=== PATIENT | male | born 1985 | race Caucasian/White ===

== ENCOUNTER 2020-02-24 21:22 | Inpatient (IN) | payer BC, OTHER ==
[~2020-02-24] VITALS: Ht 175.3 cm; Wt 101.9 kg
[2020-02-24 22:26] LABS: Eosinophils # (auto) 0 10 ^3/uL (0-0.8); Eosinophils % (auto) 0.3 % (0.0-7.0); Hemoglobin 10.7 g/dL (13.5-17.5); Monocytes # (auto) 0.7 10 ^3/uL (0-1.3); Neutrophils # (auto) 6.9 10 ^3/uL (1.6-8.6); Platelet Count (auto) 87 10^3/uL (140-450)
[2020-02-24 22:28] LABS: Basophils # (auto) 0 10 ^3/uL (0-0.2); Basophils % (auto) 0.3 % (0.0-2.0); Hematocrit 29.6 % (41.0-53.0); Lymphocytes # (auto) 0.9 10 ^3/uL (0.4-5.4); Mean Corpuscular Hemoglobin 35.7 pg (28.0-32.0); Mean Corpuscular Hgb Conc. 36.1 g/dL (32.0-36.0); Mean Corpuscular Volume 99.1 fL (80.0-100.0); Monocytes % (auto) 8.2 % (0.0-12.0); Neutrophils % (auto) 80.2 % (37.0-80.0); Red Blood Cells 2.99 10^6/uL (4.5-5.90); White Blood Cell 8.6 10^3/uL (4.4-10.8)
[2020-02-24 22:34] LABS: Alanine Aminotransferase 45 U/L (16-61); Albumin 2.5 g/dL (3.4-5.0); Anion Gap 11 (5-15); Aspartate Aminotransferase 204 U/L (15-37); BUN/Creatinine Ratio 11.4; Blood Urea Nitrogen 10 mg/dL (7-18); Calcium 7.7 mg/dL (8.5-10.1); Carbon Dioxide 24 mmol/L (21-32); Chloride 90 mmol/L (98-107); GFR African American 126 mL/min; GFR Non-African American 104 mL/min; Glucose 135 mg/dL (74-106); Potassium 3.2 mmol/L (3.5-5.1); Sodium 125 mmol/L (136-145)
[2020-02-24 22:39] LABS: Alkaline Phosphatase 300 U/L (45-117); Bilirubin, Total 9.6 mg/dL (0.2-1.0)
[2020-02-24] MEDS ORDERED: FOLIC ACID 1 MG, MULTIPLE VITAMIN 10 ML, MAGNESIUM SULF SDV 50% 8 MEQ, THIAMINE INJ 100... INJ ONE ×5 (23:00)
[2020-02-24 23:09] LABS: Urine Amorphous Crystal FEW /hpf (None Seen); Urine Bacteria FEW /hpf (None Seen); Urine Blood Negative /uL (Negative); Urine Hyaline Cast FEW /lpf (0 - 2); Urine Specific Gravity 1.022 (1.001-1.035); Urine WBC 2 /hpf (0 - 3)
[2020-02-25] MEDS ORDERED: SODIUM CHLORIDE 0.9% 1,000 ML IV ONE (00:30)
[2020-02-25 00:43] LABS: INR 2.02 (0.9-1.15); Partial Thromboplastin Time 34.6 sec (23.64-32.05)
[2020-02-25] MEDS ORDERED: IOHEXOL 300 MG/ML 100ML BOTTLE IJ ONE (00:43)
[2020-02-25] MEDS ORDERED: LACTULOSE 20Gm/30ML SOLN PO ONE (01:30)
[2020-02-25] MEDS ORDERED: TEMAZEPAM 15 MG CAP PO PRN (02:45)
[2020-02-25] MEDS ORDERED: SODIUM CHLORIDE 0.9% 1,000 ML IV SCH (02:45)
[2020-02-25] MEDS ORDERED: MORPHINE SULF INJ 2 MG/ML SYRINGE 1ML IV PRN (03:15)
[2020-02-25] MEDS ORDERED: PROPRANOLOL HCL 20 MG TAB PO ONE (03:15)
[2020-02-25] MEDS ORDERED: NITROGLYCERIN 0.4 MG SL TAB SL PRN (03:15)
[2020-02-25 03:32] LABS: Amylase 72 U/L (25-115); Lipase 300 U/L (73-393)
[2020-02-25] MEDS: chlordiazePOXIDE HCL 25 MG CAP PO PRN ×2 (03:54→10:03)
[2020-02-25 06:00] VITALS: BP 101/60
[2020-02-25 06:11] VITALS: BP 116/72
[2020-02-25 08:38] VITALS: BP 106/65
[2020-02-25] MEDS ORDERED: FAMOTIDINE 20 MG TAB PO SCH (10:00)
[2020-02-25] MEDS ORDERED: LACTULOSE 20Gm/30ML SOLN PO SCH (10:00)
[2020-02-25] MEDS: PROPRANOLOL HCL 20 MG TAB PO SCH ×2 (10:05→23:04)
[2020-02-25] MEDS ORDERED: PHYTONADIONE(VitK) ORAL Susp 10mg/10ml(1mg/ml) PO ONE (10:45)
[2020-02-25] MEDS: rifAXIMin 550 MG TAB PO SCH ×2 (11:51→23:05)
[2020-02-25] MEDS ORDERED: FOLIC ACID 1 MG, MULTIPLE VITAMIN 10 ML, MAGNESIUM SULF SDV 50% 8 MEQ, THIAMINE INJ 100... INJ SCH ×5 (12:00)
[2020-02-25 13:26] VITALS: BP 127/69
[2020-02-25] MEDS: LACTULOSE 20Gm/30ML SOLN PO SCH ×2 (16:00→23:01)
[2020-02-25] MEDS ORDERED: THIAMINE 100mg/ml INJ (200mg/2ml VIAL) IV ONE (16:45)
[2020-02-25] MEDS ORDERED: LORazepam 2MG/ML-1ML VIAL IV PRN (16:45)
[2020-02-25] MEDS ORDERED: MULTIPLE VITAMIN TAB PO ONE (16:45)
[2020-02-25] MEDS ORDERED: FOLIC ACID 1 MG TAB PO ONE (16:45)
[2020-02-25] MEDS ORDERED: LORazepam 2MG/ML-1ML VIAL IV ONE (17:30)
[2020-02-25] MEDS: LORazepam 2MG/ML-1ML VIAL IV PRN ×2 (19:02→23:50)
[2020-02-25] MEDS: PANTOPRAZOLE 40 MG TAB PO SCH (23:04)
[2020-02-26] MEDS: LACTULOSE 20Gm/30ML SOLN PO SCH ×3 (04:12→22:29)
[2020-02-26 07:19] LABS: Basophils # (auto) 0.1 10 ^3/uL (0-0.2); Basophils % (auto) 0.9 % (0.0-2.0); Mean Corpuscular Volume 101.6 fL (80.0-100.0); Neutrophils # (auto) 5.8 10 ^3/uL (1.6-8.6); Nucleated Red Blood Cells % 0.2 %
[2020-02-26 07:21] LABS: Eosinophils # (auto) 0.2 10 ^3/uL (0-0.8); Eosinophils % (auto) 1.8 % (0.0-7.0); Hematocrit 22.6 % (41.0-53.0); Lymphocytes # (auto) 1.9 10 ^3/uL (0.4-5.4); Lymphocytes % (auto) 22.7 % (10.0-50.0); Mean Corpuscular Hemoglobin 36.1 pg (28.0-32.0); Mean Corpuscular Hgb Conc. 35.5 g/dL (32.0-36.0); Monocytes # (auto) 0.7 10 ^3/uL (0-1.3); Monocytes % (auto) 7.6 % (0.0-12.0); Platelet Count (auto) 106 10^3/uL (140-450); Red Blood Cells 2.23 10^6/uL (4.5-5.90); Red Cell Distribution Width 17.1 % (11.8-14.3); White Blood Cell 8.6 10^3/uL (4.4-10.8)
[2020-02-26 07:42] LABS: Albumin 2.1 g/dL (3.4-5.0); Calcium 7.4 mg/dL (8.5-10.1)
[2020-02-26 07:45] LABS: BUN/Creatinine Ratio 25.3; Bilirubin, Total 9.9 mg/dL (0.2-1.0); Total Protein 4.9 g/dL (6.4-8.2)
[2020-02-26 07:48] LABS: Potassium 2.9 mmol/L (3.5-5.1)
[2020-02-26] MEDS ORDERED: POTASSIUM CHL 20 Meq TABLET PO ONE (08:15)
[2020-02-26 08:21] LABS: INR 1.88 (0.9-1.15)
[2020-02-26 10:18] VITALS: BP 115/62
[2020-02-26] MEDS: MULTIPLE VITAMIN TAB PO SCH (10:49)
[2020-02-26] MEDS: THIAMINE 100mg/ml INJ (200mg/2ml VIAL) IV SCH (10:49)
[2020-02-26] MEDS: rifAXIMin 550 MG TAB PO SCH ×2 (10:50→22:25)
[2020-02-26] MEDS: FOLIC ACID 1 MG TAB PO SCH (10:50)
[2020-02-26] MEDS: PANTOPRAZOLE 40 MG TAB PO SCH ×2 (10:51→22:24)
[2020-02-26] MEDS: PROPRANOLOL HCL 20 MG TAB PO SCH ×2 (10:51→22:00)
[2020-02-26 17:00] VITALS: BP 101/53
[2020-02-26 22:00] VITALS: BP 96/63
[2020-02-27] MEDS: LACTULOSE 20Gm/30ML SOLN PO SCH ×4 (03:54→22:39)
[2020-02-27 05:00] VITALS: BP 104/59
[2020-02-27 06:36] LABS: Eosinophils # (auto) 0.1 10 ^3/uL (0-0.8); Hemoglobin 8.5 g/dL (13.5-17.5); Monocytes # (auto) 0.6 10 ^3/uL (0-1.3); Neutrophils # (auto) 4.4 10 ^3/uL (1.6-8.6); Red Blood Cells 2.33 10^6/uL (4.5-5.90)
[2020-02-27 06:39] LABS: Basophils # (auto) 0.1 10 ^3/uL (0-0.2); Basophils % (auto) 0.8 % (0.0-2.0); Hematocrit 24.1 % (41.0-53.0); Lymphocytes # (auto) 1.4 10 ^3/uL (0.4-5.4); Lymphocytes % (auto) 21.5 % (10.0-50.0); Mean Corpuscular Hemoglobin 36.6 pg (28.0-32.0); Mean Corpuscular Hgb Conc. 35.4 g/dL (32.0-36.0); Mean Corpuscular Volume 103.5 fL (80.0-100.0); Monocytes % (auto) 9.3 % (0.0-12.0); Neutrophils % (auto) 66.4 % (37.0-80.0); Platelet Count (auto) 108 10^3/uL (140-450); Red Cell Distribution Width 17.4 % (11.8-14.3); White Blood Cell 6.5 10^3/uL (4.4-10.8)
[2020-02-27 07:57] LABS: Albumin 2.2 g/dL (3.4-5.0); BUN/Creatinine Ratio 16.7; Calcium 7.5 mg/dL (8.5-10.1)
[2020-02-27 07:58] LABS: Bilirubin, Total 10.9 mg/dL (0.2-1.0); Total Protein 5.2 g/dL (6.4-8.2)
[2020-02-27 07:59] LABS: Potassium 2.8 mmol/L (3.5-5.1)
[2020-02-27] MEDS ORDERED: POTASSIUM CHL 20 Meq TABLET PO ONE (08:15)
[2020-02-27] MEDS: THIAMINE 100mg/ml INJ (200mg/2ml VIAL) IV SCH (08:59)
[2020-02-27] MEDS: FOLIC ACID 1 MG TAB PO SCH (08:59)
[2020-02-27] MEDS: PROPRANOLOL HCL 20 MG TAB PO SCH ×2 (08:59→22:00)
[2020-02-27] MEDS: rifAXIMin 550 MG TAB PO SCH ×2 (09:00→22:40)
[2020-02-27] MEDS: PANTOPRAZOLE 40 MG TAB PO SCH ×2 (09:00→22:39)
[2020-02-27] MEDS: MULTIPLE VITAMIN TAB PO SCH (09:00)
[2020-02-27 11:50] VITALS: BP 108/61
[2020-02-27 13:00] VITALS: BP 95/57
[2020-02-27] MEDS: POTASSIUM CHL 20 Meq TABLET PO SCH ×2 (13:38→22:39)
[2020-02-27 17:00] VITALS: BP 95/60
[2020-02-27 22:00] VITALS: BP 96/61
[2020-02-28] MEDS: LACTULOSE 20Gm/30ML SOLN PO SCH ×4 (04:00→21:25)
[2020-02-28 05:00] VITALS: BP 102/64
[2020-02-28 07:12] LABS: Basophils # (auto) 0.1 10 ^3/uL (0-0.2); Basophils % (auto) 1.2 % (0.0-2.0); Hemoglobin 8.7 g/dL (13.5-17.5); Monocytes # (auto) 0.7 10 ^3/uL (0-1.3); Neutrophils # (auto) 4.5 10 ^3/uL (1.6-8.6); Nucleated Red Blood Cells % 0.1 %; White Blood Cell 6.9 10^3/uL (4.4-10.8)
[2020-02-28 07:14] LABS: Eosinophils # (auto) 0.1 10 ^3/uL (0-0.8); Eosinophils % (auto) 2.1 % (0.0-7.0); Hematocrit 24.7 % (41.0-53.0); Lymphocytes # (auto) 1.6 10 ^3/uL (0.4-5.4); Lymphocytes % (auto) 22.6 % (10.0-50.0); Mean Corpuscular Hgb Conc. 35.2 g/dL (32.0-36.0); Mean Corpuscular Volume 105.1 fL (80.0-100.0); Monocytes % (auto) 9.7 % (0.0-12.0); Neutrophils % (auto) 64.4 % (37.0-80.0); Platelet Count (auto) 122 10^3/uL (140-450); Red Blood Cells 2.35 10^6/uL (4.5-5.90); Red Cell Distribution Width 17.9 % (11.8-14.3)
[2020-02-28 07:42] LABS: INR 1.96 (0.9-1.15); Partial Thromboplastin Time 32.5 sec (23.64-32.05)
[2020-02-28 07:46] LABS: Albumin 2.2 g/dL (3.4-5.0); Calcium 7.8 mg/dL (8.5-10.1); Potassium 3.1 mmol/L (3.5-5.1)
[2020-02-28 07:52] LABS: BUN/Creatinine Ratio 12.4; Bilirubin, Total 11.5 mg/dL (0.2-1.0); Total Protein 5.3 g/dL (6.4-8.2)
[2020-02-28 09:00] VITALS: BP 104/65
[2020-02-28] MEDS: POTASSIUM CHL 20 Meq TABLET PO SCH ×2 (10:00→21:26)
[2020-02-28] MEDS: PANTOPRAZOLE 40 MG TAB PO SCH ×2 (10:00→21:26)
[2020-02-28] MEDS: MULTIPLE VITAMIN TAB PO SCH (10:00)
[2020-02-28] MEDS: PROPRANOLOL HCL 20 MG TAB PO SCH ×2 (10:00→22:00)
[2020-02-28] MEDS: FOLIC ACID 1 MG TAB PO SCH (10:00)
[2020-02-28] MEDS: rifAXIMin 550 MG TAB PO SCH ×2 (10:00→21:26)
[2020-02-28] MEDS: POTASSIUM CHL 20MEQ/100ML 100 ML IV SCH ×2 (10:49→19:26)
[2020-02-28] MEDS: THIAMINE 100mg/ml INJ (200mg/2ml VIAL) IV SCH (10:50)
[2020-02-28 13:00] VITALS: BP 107/65
[2020-02-28 13:18] VITALS: BP 112/70
[2020-02-28] MEDS ORDERED: BENZOCAINE (DENTAL) 20 % SPRAY 60ML MT ONE (13:24)
[2020-02-28] MEDS ORDERED: fentaNYL CITRATE 100 MCG/2 ML VL ONE (13:48)
[2020-02-28] MEDS ORDERED: MIDAZOLAM HCL 1MG/1ML-2 ML VIAL ONE (13:48)
[2020-02-28] MEDS ORDERED: DexAMETHasone SOD PHOS 10MG/1ML VIAL INJ ONE (13:51)
[2020-02-28] MEDS ORDERED: PROPOFOL 10 MG/ML 20 ML IV ONE (13:51)
[2020-02-28 16:48] VITALS: BP 106/62
[2020-02-28] MEDS ORDERED: POTASSIUM CHL 20MEQ/100ML 100 ML IV ONE (16:53)
[2020-02-28 22:22] VITALS: BP 110/62
[2020-02-29] MEDS: LACTULOSE 20Gm/30ML SOLN PO SCH (04:00)
[2020-02-29 05:04] VITALS: BP 120/69
[2020-02-29 05:42] LABS: Basophils # (auto) 0.1 10 ^3/uL (0-0.2); Eosinophils # (auto) 0.1 10 ^3/uL (0-0.8); Hemoglobin 8.9 g/dL (13.5-17.5)
[2020-02-29 05:44] LABS: Basophils % (auto) 0.8 % (0.0-2.0); Eosinophils % (auto) 1.5 % (0.0-7.0); Hematocrit 25.6 % (41.0-53.0); Lymphocytes # (auto) 2.1 10 ^3/uL (0.4-5.4); Lymphocytes % (auto) 31.9 % (10.0-50.0); Mean Corpuscular Hemoglobin 36.7 pg (28.0-32.0); Mean Corpuscular Hgb Conc. 34.9 g/dL (32.0-36.0); Monocytes # (auto) 0.7 10 ^3/uL (0-1.3); Monocytes % (auto) 10.3 % (0.0-12.0); Neutrophils # (auto) 3.7 10 ^3/uL (1.6-8.6); Neutrophils % (auto) 55.5 % (37.0-80.0); Platelet Count (auto) 130 10^3/uL (140-450); Red Blood Cells 2.44 10^6/uL (4.5-5.90); Red Cell Distribution Width 17.7 % (11.8-14.3); White Blood Cell 6.6 10^3/uL (4.4-10.8)
[2020-02-29 05:59] LABS: BUN/Creatinine Ratio 11.8; Calcium 7.2 mg/dL (8.5-10.1); Potassium 3.6 mmol/L (3.5-5.1)
[2020-02-29 06:52] LABS: Hepatitis A Ab IgM Negative; Hepatitis B Core IgM Negative; Hepatitis B Surface Antigen Negative (Negative); Hepatitis C Antibody Negative (Negative)
[2020-02-29 08:00] VITALS: BP 109/66
== END 2020-02-29 12:45 | disposition home or self-care (01) | DRG 441 ==
LOC: EDBD 21:22 → ER 21:26 → TELE 21:27 → TELE-CENTR 02-25 06:09 → CENTRAL 02-26 09:39
PROVIDERS: ADMIT Nurse Practitioner; ATTEND Family Medicine
PROC: 30233L1 Transfusion of Nonautologous Fresh Plasma into Peripheral Vein, Percutaneous Approach (ICD-10-PCS; 2020-02-28)
PROC: 06L38CZ Occlusion of Esophageal Vein with Extraluminal Device, Via Natural or Artificial Opening Endoscopic (ICD-10-PCS; principal; 2020-02-28 13:45)
DX: K76.6 Portal hypertension (principal); K72.00 Acute and subacute hepatic failure without coma; I85.11 Secondary esophageal varices with bleeding; E87.1 Hypo-osmolality and hyponatremia; F10.231 Alcohol dependence with withdrawal delirium; E72.20 Disorder of urea cycle metabolism, unspecified; K92.0 Hematemesis; E44.0 Moderate protein-calorie malnutrition; D68.9 Coagulation defect, unspecified; I10 Essential (primary) hypertension; F17.210 Nicotine dependence, cigarettes, uncomplicated; Y90.0 Blood alcohol level of less than 20 mg/100 ml; K70.31 Alcoholic cirrhosis of liver with ascites; D69.6 Thrombocytopenia, unspecified; E87.6 Hypokalemia; R60.1 Generalized edema; K31.89 Other diseases of stomach and duodenum; K80.20 Calculus of gallbladder without cholecystitis without obstruction
CPT/HCPCS: 10022; 36415; 74177; 76705; 76942; 80048; 80053; 80074; 80320; 80329; 81001; 82140; 82150; 83690; 83986; 84484; 85025; 85610; 85730; 86850; 86900; 86901; 87205; 89051; 96361; 96365; 96366; 99291; G0378; J1100; J2250; J2704; J3480

== ENCOUNTER → 2020-03-20 | Outpatient (CLI) | payer BC, OTHER ==
[~2020-03-20] MED LIST: ALBUMIN 25% 100 ML IV ONE; ALBUMIN 25% 50 ML IV ONE; CHL25C PO; FERR-20 PO; FOLI1TAB6 PO; FURO20TA3 PO; LACT10SO3 PO; PANT40TA2 PO; PROP20TA73 PO; RIFA550T PO; SPIR50TA5 PO; SUCR1TAB22 PO; THIA100T10 GT
[2020-03-20 09:30] LABS: Basophils # (auto) 0.1 10 ^3/uL (0-0.2); Eosinophils # (auto) 0.3 10 ^3/uL (0-0.8); Hematocrit 38.9 % (41.0-53.0); Hemoglobin 12.9 g/dL (13.5-17.5); Lymphocytes % (auto) 25.1 % (10.0-50.0); Mean Corpuscular Hemoglobin 33.6 pg (28.0-32.0); Mean Corpuscular Hgb Conc. 33.1 g/dL (32.0-36.0); Mean Corpuscular Volume 101.4 fL (80.0-100.0); Monocytes # (auto) 0.5 10 ^3/uL (0-1.3); Monocytes % (auto) 6.1 % (0.0-12.0); Neutrophils % (auto) 63.8 % (37.0-80.0); Nucleated Red Blood Cells % 0.1 %; Platelet Count (auto) 240 10^3/uL (140-450); Red Blood Cells 3.84 10^6/uL (4.5-5.90); Red Cell Distribution Width 15.9 % (11.8-14.3); White Blood Cell 7.9 10^3/uL (4.4-10.8)
[2020-03-20 09:44] LABS: INR 1.67 (0.9-1.15)
--- NOTE | 2020-03-20 10:38 | NUR ---
PT IN ULTRASOUND FOR A PARACENTESIS BY DR VELEZ. [facility] 112/75-75-16-99%
--- NOTE | 2020-03-20 11:15 | NUR ---
FINISHED WITH PARACENTESIS. VSS 120/72-73-16-99%. 8100 ML OF ASCITIC FLUID REMOVED. IV STARTED AND ALBUMIN HUNG ORDERED.
--- NOTE | 2020-03-20 12:15 | NUR ---
FINISHED WITH ALBUMIN INFUSION. IV DC'D AND PT RELEASED HOME WITH DRIVING
== END | disposition home or self-care (01) ==
LOC: US 08:06
PROVIDERS: ATTEND Internal Medicine Gastroenterology
DX: R18.8 Other ascites (principal); Z98.890 Other specified postprocedural states
CPT/HCPCS: 36415; 49083; 82140; 85025; 85610; C1729; P9047; 10022; 76942

== ENCOUNTER 2020-03-25 19:03 | Inpatient (IN) | payer BC, OTHER ==
[~2020-03-25] VITALS: Ht 177.8 cm; Wt 102.5 kg
[2020-03-25 20:26] LABS: Basophils # (auto) 0.1 10 ^3/uL (0-0.2); Basophils % (auto) 0.9 % (0.0-2.0); Eosinophils # (auto) 0.3 10 ^3/uL (0-0.8); Eosinophils % (auto) 4.4 % (0.0-7.0); Hematocrit 34.7 % (41.0-53.0); Hemoglobin 11.4 g/dL (13.5-17.5); Lymphocytes # (auto) 2.1 10 ^3/uL (0.4-5.4); Lymphocytes % (auto) 28.1 % (10.0-50.0); Mean Corpuscular Hemoglobin 32.9 pg (28.0-32.0); Monocytes # (auto) 0.6 10 ^3/uL (0-1.3); Monocytes % (auto) 8.1 % (0.0-12.0); Neutrophils # (auto) 4.5 10 ^3/uL (1.6-8.6); Neutrophils % (auto) 58.5 % (37.0-80.0); Nucleated Red Blood Cells % 0.1 %; Platelet Count (auto) 186 10^3/uL (140-450); Red Blood Cells 3.48 10^6/uL (4.5-5.90); Red Cell Distribution Width 15.7 % (11.8-14.3); White Blood Cell 7.6 10^3/uL (4.4-10.8)
[2020-03-25 20:44] LABS: Albumin 2.2 g/dL (3.4-5.0); BUN/Creatinine Ratio 9.1; Calcium 8.1 mg/dL (8.5-10.1); Potassium 3.8 mmol/L (3.5-5.1)
[2020-03-25 20:46] LABS: Bilirubin, Total 3.2 mg/dL (0.2-1.0); Total Protein 5.5 g/dL (6.4-8.2)
[2020-03-25 21:37] LABS: Urine Bacteria NONE SEEN /hpf (None Seen); Urine Blood Negative /uL (Negative); Urine Hyaline Cast FEW /lpf (0 - 2); Urine WBC 1 /hpf (0 - 3)
[2020-03-25] MEDS ORDERED: IOHEXOL 300 MG/ML 100ML BOTTLE IJ ONE (22:48)
[2020-03-26] MEDS ORDERED: DOCUSATE SOD 100 MG CAP PO PRN (00:45)
[2020-03-26] MEDS ORDERED: ACETAMINOPHEN 325 MG TAB PO PRN (00:45)
[2020-03-26] MEDS ORDERED: MORPHINE SULFATE 4 MG/ML SYR/VIAL IV PRN (00:45)
[2020-03-26] MEDS ORDERED: HYDROcodone-ACET 5/325MG TAB PO PRN (00:45)
[2020-03-26] MEDS ORDERED: ONDANSETRON HCL 4 MG/2 ML VIAL IV PRN (00:45)
[2020-03-26] MEDS ORDERED: TEMAZEPAM 15 MG CAP PO PRN (00:45)
[2020-03-26] MEDS ORDERED: LORazepam 0.5 MG TAB PO PRN (00:45)
[2020-03-26 01:40] VITALS: BP 116/74
--- NOTE | 2020-03-26 01:43 | NUR ---
Telemetry admit from ER [place] [facility] admitted to Telemetry unit. Patient oriented to kingston HODGES RN, unit, room, bed, and unit policies regarding patient care and visiting hours. Patient now on continuous telemetry monitoring, tele box # [id number] and telemetry reading on arrival to unit is NSR 76 . Patient weighed by bed scale and encouraged to call if they need something. All questions and concerns addressed, patient verbalized understanding. Note: skin intact, abdomen large, distended.
[2020-03-26] MEDS ORDERED: FURO20TA3 PO (03:20)
[2020-03-26] MEDS ORDERED: CHL25C PO (03:20)
[2020-03-26] MEDS ORDERED: FOLI1TAB6 PO (03:20)
[2020-03-26] MEDS ORDERED: FERR-20 PO (03:20)
[2020-03-26] MEDS ORDERED: SUCR1TAB22 PO (03:20)
[2020-03-26] MEDS ORDERED: THIA100T10 GT (03:20)
[2020-03-26] MEDS ORDERED: LACT10SO3 PO (03:20)
[2020-03-26] MEDS ORDERED: PROP20TA73 PO (03:20)
[2020-03-26] MEDS ORDERED: PANT40TA2 PO (03:20)
[2020-03-26] MEDS ORDERED: SPIR50TA5 PO (03:20)
[2020-03-26] MEDS ORDERED: RIFA550T PO (03:20)
[2020-03-26 04:06] VITALS: BP 116/74
[2020-03-26 05:00] VITALS: BP 104/59
--- NOTE | 2020-03-26 05:16 | NUR ---
FAMILY CONCERN: PER DON'T TRANSFER ANY CALLS TO ROOM 279B. PATIENT'S , ROSALBA, DOES NOT WANT PATIENT TO TALK TO HIS MOTHER DUE TO MOTHER COULD BE CALLING WHILE INTOXICATED.
[2020-03-26 05:29] LABS: Basophils # (auto) 0.1 10 ^3/uL (0-0.2); Basophils % (auto) 0.9 % (0.0-2.0); Eosinophils # (auto) 0.3 10 ^3/uL (0-0.8); Eosinophils % (auto) 4.5 % (0.0-7.0); Hematocrit 35.7 % (41.0-53.0); Hemoglobin 11.8 g/dL (13.5-17.5); Lymphocytes # (auto) 2.1 10 ^3/uL (0.4-5.4); Mean Corpuscular Hemoglobin 33.1 pg (28.0-32.0); Mean Corpuscular Hgb Conc. 33.1 g/dL (32.0-36.0); Mean Corpuscular Volume 99.9 fL (80.0-100.0); Monocytes # (auto) 0.6 10 ^3/uL (0-1.3); Monocytes % (auto) 8.4 % (0.0-12.0); Neutrophils # (auto) 3.7 10 ^3/uL (1.6-8.6); Neutrophils % (auto) 55.2 % (37.0-80.0); Nucleated Red Blood Cells % 0.1 %; Platelet Count (auto) 176 10^3/uL (140-450); Red Blood Cells 3.57 10^6/uL (4.5-5.90); Red Cell Distribution Width 15.8 % (11.8-14.3); White Blood Cell 6.8 10^3/uL (4.4-10.8)
[2020-03-26 05:47] LABS: BUN/Creatinine Ratio 10.2; Calcium 8.2 mg/dL (8.5-10.1); Potassium 3.9 mmol/L (3.5-5.1)
[2020-03-26] MEDS: chlordiazePOXIDE HCL 25 MG CAP PO SCH ×3 (05:58→21:13)
[2020-03-26] MEDS: LACTULOSE 20Gm/30ML SOLN PO SCH ×3 (05:58→21:13)
[2020-03-26 06:02] LABS: Amphetamine Screen, Urine NEGATIVE (NEGATIVE); Barbiturate Scree,Urine NEGATIVE (NEGATIVE); Benzodiazephine Screen, Urine POSITIVE (NEGATIVE); Cannabinoid Screen, Urine POSITIVE (NEGATIVE); Cocaine Screen, Urine NEGATIVE (NEGATIVE); Opiate Scree,Urine NEGATIVE (NEGATIVE); Phencyclidine Screen, Urine NEGATIVE (NEGATIVE)
[2020-03-26] MEDS ORDERED: FERROUS SULFATE 325 MG TAB PO SCH (10:00)
[2020-03-26] MEDS: FOLIC ACID 1 MG TAB PO SCH (10:59)
[2020-03-26] MEDS: THIAMINE HCL 100 MG TAB PO SCH (10:59)
[2020-03-26] MEDS ORDERED: PANTOPRAZOLE 40 MG/10 ML VIAL INJ IV ONE (11:30)
[2020-03-26 13:00] VITALS: BP 102/70
[2020-03-26 17:00] VITALS: BP 96/60
[2020-03-26] MEDS: FERROUS SULFATE 325 MG TAB PO SCH (18:29)
--- NOTE | 2020-03-26 19:30 | NUR ---
Opening Shift Note Assumed care of patient, awake and alert. No S/S of distress/SOB or pain. Instructed on POC and to call for assist PRN, will continue to monitor for changes Q1hr and PRN. Side rails up x2. Bed locked in lowest position. Call light within reach.
[2020-03-26 21:56] VITALS: BP 106/63
--- NOTE | 2020-03-27 01:26 | NUR ---
Rounds Patient in bed asleep with no signs of distress/sob/pain. Will continue to monitor q1h prn.
[2020-03-27 05:00] VITALS: BP 109/72
[2020-03-27] MEDS: LACTULOSE 20Gm/30ML SOLN PO SCH (06:00)
[2020-03-27] MEDS: chlordiazePOXIDE HCL 25 MG CAP PO SCH (06:00)
--- NOTE | 2020-03-27 07:30 | NUR ---
Opening Shift Note RECEIVED REPORT FROM NOC RN. Assumed care of patient, awake and alert. No S/S of distress/SOB or pain. BED IN LOWEST, LOCKED POSITION WITH SIDERAILS UP x2 AND CALL LIGHT WITHIN REACH. Instructed on POC and to call for assist PRN, will continue to monitor for changes Q1hr and PRN.
--- NOTE | 2020-03-27 07:39 | NUR ---
Endorsed care to day shift RN.
[2020-03-27] MEDS: FERROUS SULFATE 325 MG TAB PO SCH (08:23)
[2020-03-27 08:44] VITALS: BP 96/54
[2020-03-27] MEDS ORDERED: cefTRIAXone 1GM/50ML D5W 50 ML IV SCH (09:00)
[2020-03-27 09:09] LABS: INR 1.64 (0.9-1.15)
[2020-03-27] MEDS ORDERED: PANTOPRAZOLE 40 MG/10 ML VIAL INJ IV SCH (10:00)
[2020-03-27] MEDS: THIAMINE HCL 100 MG TAB PO SCH (10:02)
[2020-03-27] MEDS: FOLIC ACID 1 MG TAB PO SCH (10:02)
--- NOTE | 2020-03-27 10:40 | NUR ---
PT IN ULTRASOUND FOR A PARACENTESIS BY DR VELEZ. 111/72-76-16-95%1100: 110/71-75-17-95%.1115: FINISHED WITH PARACENTESIS. PT TOLERATED WELL. 4740 ML OF FLUID REMOVED
[2020-03-27 12:29] VITALS: BP 103/63
[2020-03-27 13:02] VITALS: BP 103/63
--- NOTE | 2020-03-27 13:53 | NUR ---
TELE BOX 68 SENT TO ICU VIA BULLET SYSTEM.
--- NOTE | 2020-03-27 14:10 | NUR ---
Discharge instructions given as ordered. Encourage to follow up with PMD as instructed. All questions and concerns addressed. Patient verbalized understanding. Medication reconciliation form completed and copy given to patient. IV removed with catheter intact, pressure dressing applied. Telemetry unit returned to ICU. Patient taken to vehicle via AMBULATION with all personal belongings, accompanied by staff. No distress noted at time of departure.
== END 2020-03-27 14:10 | disposition home or self-care (01) | DRG 432 ==
LOC: ER 19:03 → EDBD 19:03 → TELE 19:04 → TELE-WESTW 03-26 01:31
PROVIDERS: ADMIT Hospitalist; ATTEND Family Medicine
PROC: 0W9G3ZZ Drainage of Peritoneal Cavity, Percutaneous Approach (ICD-10-PCS; principal; 2020-03-27)
DX: K70.31 Alcoholic cirrhosis of liver with ascites (principal); G93.41 Metabolic encephalopathy; F10.231 Alcohol dependence with withdrawal delirium; K76.6 Portal hypertension; K31.9 Disease of stomach and duodenum, unspecified; K80.20 Calculus of gallbladder without cholecystitis without obstruction; I10 Essential (primary) hypertension; K72.90 Hepatic failure, unspecified without coma; Z87.891 Personal history of nicotine dependence
CPT/HCPCS: 10022; 36415; 49083; 70450; 74177; 76942; 80048; 80053; 80307; 81001; 82140; 82150; 83690; 85025; 85610; 87081; C9113; G0378; J0696

== ENCOUNTER → 2020-03-30 | Outpatient (CLI) | payer BC, OTHER ==
[~2020-03-30] MED LIST changes: -ALBUMIN 25% 100 ML IV ONE; -ALBUMIN 25% 50 ML IV ONE; -SUCR1TAB22 PO; +SUCR1TAB38 PO
--- NOTE | 2020-03-30 11:11 | NUR ---
PARACENTESIS: PATIENT ARRIVED IN [facility] DEPT FOR OUTPATIENT PARACENTESIS-CONSENT SIGNED FOR PROCEDURE PER PATIENT. 1100 BASELINE VS: BP 108/68-68-24-98% R.A. 1115 BP 104/68-72-17-96% R.A. 1120 BP 105/65-70-15-96% R.A. 1125 BP 92/60-69-15-98% R.A. 1130 BP 100/60-75-16-98% R.A. 1135 BP 99/56-71-17-98% R.A. 1140 BP 98/55-70-17-98% R.A. 1143 BP 97/56 -70-17-97% R.A. PROCEDURE COMPLETED 4150 ML STRAW COLORED FLUID OBTAINED-PATIENT TOLERATED PROCEDURE WELL. BANDAID APPLIED TO RLQ ABDOMEN. PATIENT DEPARTED PER AMBULATORY WITH .
== END | disposition home or self-care (01) ==
LOC: US 09:55
PROVIDERS: ATTEND Internal Medicine Gastroenterology
DX: R18.8 Other ascites (principal); Z98.890 Other specified postprocedural states
CPT/HCPCS: 49083; C1729; 10022; 76942

== ENCOUNTER → 2020-04-06 | Outpatient (CLI) | payer BC, OTHER ==
[2020-04-06 10:06] LABS: Basophils # (auto) 0.1 10 ^3/uL (0-0.2); Basophils % (auto) 1.7 % (0.0-2.0); Eosinophils # (auto) 0.2 10 ^3/uL (0-0.8); Eosinophils % (auto) 3.4 % (0.0-7.0); Hematocrit 41.8 % (41.0-53.0); Hemoglobin 13.9 g/dL (13.5-17.5); Lymphocytes # (auto) 1.9 10 ^3/uL (0.4-5.4); Mean Corpuscular Hemoglobin 32.7 pg (28.0-32.0); Mean Corpuscular Hgb Conc. 33.2 g/dL (32.0-36.0); Mean Corpuscular Volume 98.4 fL (80.0-100.0); Monocytes # (auto) 0.4 10 ^3/uL (0-1.3); Monocytes % (auto) 6.5 % (0.0-12.0); Neutrophils # (auto) 3.2 10 ^3/uL (1.6-8.6); Neutrophils % (auto) 55.4 % (37.0-80.0); Nucleated Red Blood Cells % 0.1 %; Platelet Count (auto) 184 10^3/uL (140-450); Red Blood Cells 4.25 10^6/uL (4.5-5.90); White Blood Cell 5.9 10^3/uL (4.4-10.8)
[2020-04-06 10:24] LABS: INR 1.76 (0.9-1.15)
--- NOTE | 2020-04-06 11:00 | NUR ---
PT IN ULTRASOUND FOR A PARACENTESIS BY DR VELEZ. VS 97/65-68-16-97%. 1115: 96/60-62-16-97%. 1117: FINISHED WITH PROCEDURE. CATHETER REMOVED AND BANDAID APPLIED. NO BLEEDING NOTED. 2150ML OF ASCITES FLUID REMOVED.
== END | disposition home or self-care (01) ==
LOC: US 09:09
PROVIDERS: ATTEND Internal Medicine Gastroenterology
DX: R18.8 Other ascites (principal); Z98.890 Other specified postprocedural states; Z79.899 Other long term (current) drug therapy
CPT/HCPCS: 36415; 49083; 85025; 85610; C1729; 10022; 76942

== ENCOUNTER → 2020-04-12 | Outpatient (CLI) | payer BC, OTHER ==
[2020-04-12 11:23] LABS: Basophils # (auto) 0.1 10 ^3/uL (0-0.2); Basophils % (auto) 1.4 % (0.0-2.0); Eosinophils # (auto) 0.1 10 ^3/uL (0-0.8); Eosinophils % (auto) 2.2 % (0.0-7.0); Hematocrit 42.8 % (41.0-53.0); Hemoglobin 14.4 g/dL (13.5-17.5); Lymphocytes # (auto) 2.7 10 ^3/uL (0.4-5.4); Lymphocytes % (auto) 45.3 % (10.0-50.0); Mean Corpuscular Hemoglobin 32.4 pg (28.0-32.0); Mean Corpuscular Hgb Conc. 33.6 g/dL (32.0-36.0); Mean Corpuscular Volume 96.5 fL (80.0-100.0); Monocytes # (auto) 0.5 10 ^3/uL (0-1.3); Monocytes % (auto) 8.9 % (0.0-12.0); Neutrophils # (auto) 2.5 10 ^3/uL (1.6-8.6); Neutrophils % (auto) 42.2 % (37.0-80.0); Nucleated Red Blood Cells % 0.2 %; Platelet Count (auto) 195 10^3/uL (140-450); Red Blood Cells 4.43 10^6/uL (4.5-5.90); Red Cell Distribution Width 16.2 % (11.8-14.3)
[2020-04-12 11:35] LABS: INR 1.63 (0.9-1.15)
[2020-04-12 11:58] LABS: Albumin 2.5 g/dL (3.4-5.0); Calcium 8.7 mg/dL (8.5-10.1)
[2020-04-12 12:01] LABS: BUN/Creatinine Ratio 9.4; Bilirubin, Total 2.7 mg/dL (0.2-1.0); Total Protein 6.1 g/dL (6.4-8.2)
== END | disposition home or self-care (01) ==
LOC: LAB 10:57
PROVIDERS: ATTEND Internal Medicine Gastroenterology
DX: K74.60 Unspecified cirrhosis of liver (principal); R94.5 Abnormal results of liver function studies; R18.8 Other ascites
CPT/HCPCS: 36415; 80053; 82105; 82728; 85025; 85610